=== PATIENT | male | born 1960 | race Caucasian/White ===

== ENCOUNTER 2024-06-02 11:04 | Emergency (ER) | payer BC ==
[~2024-06-02] VITALS: Ht 182.9 cm; Wt 96.0 kg
[2024-06-02 11:15] VITALS: BP 170/85; PULSE 62; RESP 18; TEMP 97.8; O2SAT 100
[2024-06-02] MEDS: FLUORESCEIN SODIUM 1MG/STRIP RIGHTEYE ONE (12:03)
[2024-06-02] MEDS: TETRACAINE 0.5% OPHTH DROPS 4ML RIGHTEYE ONE (12:04)
[2024-06-02] MEDS ORDERED: ERYT1OIN6 RIGHTEYE (12:15)
== END 2024-06-02 14:14 | disposition home or self-care (01) ==
LOC: ER 11:04
DX: S05.01XA Injury of conjunctiva and corneal abrasion without foreign body, right eye, initial encounter (principal); Z90.49 Acquired absence of other specified parts of digestive tract; X58.XXXA Exposure to other specified factors, initial encounter; Y93.89 Activity, other specified; Y92.89 Other specified places as the place of occurrence of the external cause; Y99.8 Other external cause status
CPT/HCPCS: 99283